=== PATIENT | female | born 1945 | race Caucasian/White ===

== ENCOUNTER 2016-07-02 12:54 | Emergency (ER) | payer MEDICARE, OTHER ==
[~2016-07-02] VITALS: Ht 167.6 cm; Wt 120.2 kg
[~2016-07-02 12:54] MED LIST: ASPI-482 PO; DILT120C97 PO; FURO20TA3 PO; LISI-334 PO; LORA1TAB PO; NAPR375T3 PO; POTA10TA5 PO; SERT50TA PO
[2016-07-02 14:18] VITALS: BP 144/75
--- NOTE | 2016-07-02 14:31 | PHYS DOC ---
Past Medical History Past Medical History: High Cholesterol, Hypertension Additional Past Surgical Histo: knee, ankle Adult General Chief Complaint Chief Complaint: LACERATION/AVULSION [facility] HPI Patient is a 70 year old presents emergency department stating that she was at home sitting in a recliner with her feet up when the people that were re- modeling her bathroom asked her to come in and check the progress. Patient states she got up out of her recliner when and they're barefooted and a knife that was laying on the floor caught her left foot. She states that she has a laceration to the inner sole of her left foot with bleeding noted at home. She currently has a Band-Aid over the site with decreased bleeding noted. Patient states her last tetanus shot was in January. She normally takes tramadol and naproxen at home she states that at this current time she is not having any pain or discomfort. Patient denies tingling in her foot. Peripheral pulses 2+ cap refill brisk less than 2 seconds. Review of Systems Review of Systems Constitutional: Denies fever or chills [] Respiratory: Denies cough or shortness of breath [] Cardiovascular: No additional information not addressed in HPI [] Musculoskeletal: Denies back pain or joint pain [] Integument: Denies rash or skin lesions. laceration to the inner left foot Neurologic: Denies headache, focal weakness or sensory changes [] Allergies Allergies Allergies Coded Allergies Type Severity Reaction Last Updated Verified Sulfa (Sulfonamide Antibiotics) Allergy Intermediate Swelling 08/17/14 Yes Physical Exam Physical Exam Constitutional: Well developed, well nourished, no acute distress, non-toxic appearance. [] HENT: Normocephalic, atraumatic, bilateral external ears normal, oropharynx moist, no oral exudates, nose normal. [] Eyes: PERRLA, EOMI, conjunctiva normal, no discharge. [] Neck: Normal range of motion, no tenderness, supple, no stridor. [] Cardiovascular:Heart rate regular rhythm Lungs & Thorax: No respiratory distress noted Skin: Warm, dry, no erythema, no rash. Patient with 0.5 cm superficial cut to the inner part of her left foot. Bleeding is currently controlled. Peripheral pulses 2+ cap refill brisk less than 2 seconds. Back: No tenderness Extremities: No tenderness, no cyanosis, no clubbing, ROM intact, no edema. [] Neurologic: Alert and oriented X 3, normal motor function, normal sensory function, no focal deficits noted. [] Psychologic: Affect normal, judgement normal, mood normal. [] EKG EKG [] Radiology/Procedures Radiology/Procedures [] Course & Med Decision Making Course & Med Decision Making Pertinent Labs and Imaging studies reviewed. (See chart for details) Site was cleaned with Hibiclens. Steri-Strip was placed over the site with a bandage. Patient was instructed to keep the area clean and dry. Watch for signs and symptoms of infection: Redness, warmth, tenderness or any yellow/green drainage of a come from the site if this should occur she is to follow back up with her primary care physician immediately. Patient agrees with discharge instructions treatment regimens and follow-up recommendations. Patient not he takes naproxen and tramadol at home for pain control. No further pain medication as needed at this time. We'll recommend ice packs to the area on 20 minutes off 20 minutes several times a day. Elevation as much as possible. [] Dragon Disclaimer Dragon Disclaimer This electronic medical record was generated, in whole or in part, using a voice recognition dictation system. Departure Departure Impression: Primary Impression: Laceration of left foot Disposition: HOME, SELF-CARE Condition: STABLE Referrals: SIA MEMBRENO MD (PCP) Patient Instructions: Laceration Care, Adult, [id number], Sterile Tape Wound Closure Additional Instructions: Activity as tolerated. Ice packs on 20 minutes off 20 minutes several times a day. Elevation as much as possible. Keep the area clean and dry. Watch for signs and symptoms of infection: Redness, warmth, tenderness or any yellow/greenish drainage of a come from the site physician occur follow-up through primary care physician immediately. Steri-Strips should fall off in approximately 7-10 days. Return back to emergency prior signs symptoms of become worse. Follow-up to primary care physician as needed. MURIEL PEREZ NP Jul 02, 2016 14:30
== END 2016-07-02 14:41 | disposition home or self-care (01) ==
LOC: ER 12:54
DX: S91.312A Laceration without foreign body, left foot, initial encounter (principal); E78.00 Pure hypercholesterolemia, unspecified; I10 Essential (primary) hypertension; Z88.2 Allergy status to sulfonamides; W26.0XXA Contact with knife, initial encounter; Y93.89 Activity, other specified; Y99.8 Other external cause status; Y92.89 Other specified places as the place of occurrence of the external cause
CPT/HCPCS: 12001; 99282; 99283-25

== ENCOUNTER → 2017-07-15 | Outpatient (CLI) | payer MEDICARE, OTHER | END | disposition home or self-care (01) | LOC: KCIC MAMMO 15:29 | DX: Z12.31 Encounter for screening mammogram for malignant neoplasm of breast (principal); Z80.3 Family history of malignant neoplasm of breast | CPT/HCPCS: 77063; 77067 ==

== ENCOUNTER → 2017-09-17 | Outpatient (CLI) | payer MEDICARE, OTHER | END | disposition home or self-care (01) | LOC: KCIC 15:04 | DX: M43.16 Spondylolisthesis, lumbar region (principal); M47.896 Other spondylosis, lumbar region | CPT/HCPCS: 72100 ==

== ENCOUNTER → 2017-09-24 | Outpatient (CLI) | payer MEDICARE, OTHER | END | disposition home or self-care (01) | LOC: KCIC MRI 14:23 | DX: M51.27 Other intervertebral disc displacement, lumbosacral region (principal); M48.061 Spinal stenosis, lumbar region without neurogenic claudication | CPT/HCPCS: 72148 ==

== ENCOUNTER → 2018-04-11 | Outpatient (CLI) | payer MEDICARE, OTHER ==
[~2018-04-11] MED LIST changes: +DILT120C80 PO; -DILT120C97 PO; +NAPR-695 PO; -NAPR375T3 PO; +POTA10TA12 PO; -POTA10TA5 PO
--- NOTE | 2018-04-11 13:30 | KCIC ---
EXAM: Right lower extremity venous Doppler sonogram. HISTORY: Pain and slight. TECHNIQUE: Bolanos scale and color Doppler sonographic evaluation of the right lower extremity veins with spectral waveform analysis was performed. FINDINGS: There is normal color flow, normal compressibility and there are normal spectral waveforms in the common femoral, superficial femoral, popliteal, posterior tibial and greater saphenous veins. There is a prominent right inguinal lymph node measuring 2.6 cm in long axis. This maintains a fatty hilum and is likely histologic reactive. IMPRESSION: No Doppler evidence of lower extremity deep venous thrombosis. Electronically signed by: Colleen Ascencio MD (04/11/2018 1:26 PM) [facility]
== END | disposition home or self-care (01) ==
LOC: KCIC US 12:30
PROVIDERS: ATTEND Nurse Practitioner Family
DX: M79.661 Pain in right lower leg (principal); M79.89 Other specified soft tissue disorders; L53.9 Erythematous condition, unspecified
CPT/HCPCS: 93971

== ENCOUNTER → 2018-12-24 | Outpatient (CLI) | payer MEDICARE ==
[~2018-12-24] MED LIST changes: -DILT120C80 PO; +DILT120C85 PO
--- NOTE | 2018-12-24 14:35 | KCIC ---
BILATERAL SCREENING MAMMOGRAM, 3-D History: Routine screening. Comparison: Bilateral mammogram 07/15/2017 and 2014. Technique: MLO and CC digital tomosynthesis (3D) images obtained. Radiologist reviewed these images on dedicated workstation. Findings: Breast Tissue Density A : The breasts are almost entirely fatty. There are no dominant masses, suspicious microcalcifications, or architectural distortion. IMPRESSION: No mammographic evidence of malignancy. Recommend routine screening. BI-RADS category 1: Negative. The images were reviewed with computer-aided detection. Patient information is entered into reminder system with a target due date for the next screening mammogram. Mammography is the most sensitive method for finding small breast cancers, but it does not detect them all and is not a substitute for careful clinical examination. A negative mammogram does not negate a clinically suspicious finding and should not result in delay in biopsying a clinically suspicious abnormality. "Our facility is accredited by the [employer] Mammography Program." Electronically signed by: Abram Taylor MD (12/24/2018 2:33 PM) [id number]
--- NOTE | 2018-12-24 16:02 | KCIC ---
Indication: Postmenopausal screening for osteoporosis. Follow-up study. COMPARISON: November 15, 2014. Bone Density: -BMD: (g/cm2) - AP Spine Total (L1-L4).......... 0.921. - Total left Hip................. 0.825. T-Score: - AP Spine Total (L1-L4)......... -1.1. - Total left Hip................. -1.0. Z-Score: - AP Spine Total (L1-L4).......... 1.0. - Total left Hip................. 0.6. World Health Organization criteria for BMD interpretation classify patients as Normal (T-score at or above -1.0), Osteopenic (T-score between -1.0 and -2.5), or Osteoporotic (T-score at or below -2.5). Impression: 1. AP Spine Total L1-L4--- osteopenia. Since the previous study, there has been a decrease in the BMD of approximately 9%. 2. Total left Hip--- borderline normal. Since the previous study, there has been a decrease in the BMD of 13%. Electronically signed by: Gary Armendariz MD (12/24/2018 3:59 PM) [facility]
== END | disposition home or self-care (01) ==
LOC: KCIC DEXA 10:47
PROVIDERS: ATTEND Nurse Practitioner Family
DX: Z12.31 Encounter for screening mammogram for malignant neoplasm of breast (principal); M85.88 Other specified disorders of bone density and structure, other site; Z78.0 Asymptomatic menopausal state
CPT/HCPCS: 77063; 77067; 77080

== ENCOUNTER → 2019-02-11 | Outpatient (CLI) | payer MEDICARE ==
[~2019-02-11] MED LIST changes: +ATOR40TA59 PO; -DILT120C85 PO; +DILT120C99 PO; +MULT1TAB52 PO; +OMEG1CAP27 PO; +POTA20TA82 PO; +RANI150T2 PO; +TRAM50TA PO; +VITA100T5 PO
--- NOTE | 2019-02-11 09:15 | KCIC ---
EXAM: Bilateral hips, 2 views. HISTORY: Arthritis. COMPARISON: None. FINDINGS: Frontal and frog-leg views of both hips are obtained. There is mild left femoral head marginal spurring and degenerative subchondral sclerosis and subchondral cyst formation. There is no fracture, dislocation or subluxation. IMPRESSION: Mild left hip osteoarthritis. No acute osseous finding. Electronically signed by: Colleen Ascencio MD (02/11/2019 9:12 AM) [facility]
--- NOTE | 2019-02-11 09:15 | KCIC ---
EXAM: Bilateral hips, 2 views. HISTORY: Arthritis. COMPARISON: None. FINDINGS: Frontal and frog-leg views of both hips are obtained. There is mild left femoral head marginal spurring and degenerative subchondral sclerosis and subchondral cyst formation. There is no fracture, dislocation or subluxation. IMPRESSION: Mild left hip osteoarthritis. No acute osseous finding. Electronically signed by: Colleen Ascencio MD (02/11/2019 9:12 AM) [facility]
--- NOTE | 2019-02-11 09:16 | KCIC ---
EXAM: Lumbar spine, 5 views. HISTORY: Arthritis. COMPARISON: 09/24/2017 and 09/17/2017. FINDINGS: 5 views lumbar spine are obtained. There is S-shaped thoracolumbar scoliosis with levocurvature centered at the thoracolumbar junction and dextrocurvature centered at L4. There is grade 1 anterolisthesis of L5 on S1. There is minimal retrolisthesis of L2 on L3 and L3 on L4, a component of which is projectional. There is severe degenerative endplate remodeling at multiple levels. There is facet arthropathy predominantly at the lumbosacral junction. There is suspected bone demineralization. There is mild left hip osteoarthritis. IMPRESSION: 1. Multilevel degenerative change throughout the lumbar spine, described in detail above. 2. Mild S-shaped thoracolumbar scoliosis, grade 1 anterolisthesis of L5 on S1 and minimal retrolisthesis of L2 on L3 and L3 on L4. 3. Suspected bone demineralization. Electronically signed by: Colleen Ascencio MD (02/11/2019 9:13 AM) [facility]
--- NOTE | 2019-02-11 09:20 | KCIC ---
Standing bilateral knee radiographs to include AP and lateral radiographs of the left tibia and fibula 02/11/2019 CLINICAL HISTORY: Bilateral knee pain. Left tibia and fibula pain. Standing AP and lateral digital radiographs of the left and right knee were obtained. AP and lateral digital radiographs of the left tibia and fibula were obtained. There is diffuse osteopenia of the visualized bony structures. No fracture or dislocation of the left tibia or fibula is seen. Mild to moderate degenerative changes are seen involving the left ankle joint. Moderate to severe degenerative changes are seen involving all 3 compartments of both knees. These consist of joint compartment narrowing, subchondral sclerosis and associated osteophyte formation. They particularly involve the medial and patellofemoral compartments. No fracture or dislocation of either knee is seen. There is no radiographic evidence of a joint effusion. IMPRESSION: 1. Moderate to severe degenerative changes are seen involving both knees. No acute osseous abnormality is seen. 2. Mild to moderate degenerative changes are seen involving the left ankle joint. No acute osseous abnormality of the left tibia or fibula is seen. Electronically signed by: Crow Acevedo MD (02/11/2019 9:17 AM) [facility]
== END | disposition home or self-care (01) ==
LOC: KCIC 08:08
PROVIDERS: ATTEND Internal Medicine Rheumatology
DX: M16.12 Unilateral primary osteoarthritis, left hip (principal); M41.85 Other forms of scoliosis, thoracolumbar region; M47.896 Other spondylosis, lumbar region
CPT/HCPCS: 72110; 73502; 73560; 73590

== ENCOUNTER → 2019-02-20 | Outpatient (CLI) | payer MEDICARE ==
[~2019-02-20] MED LIST changes: -ATOR40TA59 PO; -MULT1TAB52 PO; -OMEG1CAP27 PO; -POTA20TA82 PO; -RANI150T2 PO; -TRAM50TA PO; -VITA100T5 PO
--- NOTE | 2019-02-20 11:42 | KCIC ---
EXAMINATION: Magnetic resonance imaging (MRI) of the lumbar spine without contrast 02/20/2019 9:30 AM HISTORY: Pain in the left leg. TECHNIQUE: Multiplanar multi-weighted MRI of the lumbar spine was performed without intravenous contrast using the standard lumbar spine protocol. Contrast information: None administered. COMPARISON: MR lumbar spine 09/24/2017 FINDINGS: There is minimal retrolisthesis of L2 on L3, L3 on L4 and minimal anterolisthesis of L5 on S1, stable. Vertebral body heights are maintained. Marrow signal intensity is normal in all sequences with exception of Modic 2 type endplate degenerative changes at L3-L4. Mild disc height loss is noted at L1-L2, L2-L3 and L3-L4. Annular fissures are noted at L4-L5 and L5-S1. Conus medullaris remains at L2. Distal spinal cord signal intensity is normal in all sequences. Abdominal aorta is tortuous, normal in caliber as visualized. Visualized portions of the retroperitoneum appear intact. Visualized portions of the sacrum are intact. There is suggestion of hepatomegaly extends inferiorly to the level of L4-L5. L1-L2: There is central disc extrusion. There is moderate disc bulge. Mild facet arthropathy. Mild to moderate bilateral neuroforaminal stenosis. Mild spinal canal stenosis without significant deformity of the conus. No cord signal alteration. Findings are stable. L2-L3: There is a moderate circumferential disc bulge. There may be a left foraminal disc protrusion, stable. Mild right and moderate left facet arthropathy. Mild right and moderate left neuroforaminal stenosis. Mild spinal canal stenosis. L3-L4: There is a moderate circumferential disc bulge. There is moderate facet arthropathy. Moderate right and moderate to severe left neuroforaminal stenosis. Mild spinal canal stenosis. L4-L5: There is a moderate disc bulge with central disc protrusion. There is moderate to severe facet arthropathy ligamentum flavum infolding. Moderate right and severe left neuroforaminal stenosis. Mild to moderate spinal canal stenosis. Findings are stable since prior examination. L5-S1: There is a moderate disc bulge with central disc protrusion. There is severe facet arthropathy with ligamentum flavum infolding. Moderate to severe bilateral neuroforaminal stenosis, right greater than left. No significant spinal canal stenosis. Findings are not significantly changed. IMPRESSION: Moderate degenerative changes of the lumbar spine as described in detail above. Findings are not significantly changed since prior examination from 09/24/2017. Electronically signed by: Jeanine Townsend MD (02/20/2019 11:39 AM) [facility]
== END | disposition home or self-care (01) ==
LOC: KCIC MRI 09:24
PROVIDERS: ATTEND Internal Medicine Rheumatology
DX: M51.27 Other intervertebral disc displacement, lumbosacral region (principal); M48.07 Spinal stenosis, lumbosacral region; M12.88 Other specific arthropathies, not elsewhere classified, other specified site; M47.816 Spondylosis without myelopathy or radiculopathy, lumbar region
CPT/HCPCS: 72148

== ENCOUNTER → 2019-03-10 | Outpatient (CLI) | payer MEDICARE ==
[~2019-03-10] MED LIST changes: +ATOR40TA59 PO; +IOHEXOL 180 MG/ML 10 ML VIAL. ONE; +MULT1TAB52 PO; +OMEG1CAP27 PO; +POTA20TA82 PO; +RANI150T2 PO; +TRAM50TA PO; +VITA100T5 PO; +methylPREDNISolone ACETATE 40 MG/ML VIAL. ONE; +methylPREDNISolone ACETATE 80 MG/ML VIAL. ONE
--- NOTE | 2019-03-10 22:26 | PAIN ---
DATE OF SERVICE: 03/10/2019 PROGRESS NOTE FOR PAIN CLINIC CHIEF COMPLAINT: Low back and left lower extremity pain. HISTORY OF PRESENT ILLNESS: This is a 73-year-old female who presents with history of pain in the low back and left lower extremity since about September of this year and present for many years, but much worse since September. The patient reports no recent injury or action; however, the pain has been returning and increasing with activity in the low back, left lower extremity, posterior gluteus, posterior thigh and posterior calf. The patient reports it is worse with walking, standing, change in positions. It wakes her from sleep at least once or twice a night. It does not affect her bowel or bladder control, but does affect her ability to walk with significant fatigability in the left lower extremity. The patient reports she is having chiropractic treatment, which helped initially, but lately has not been doing much to decrease the pain. The patient describes the pain as constant, tingling with numbness in the left leg, aching and dull, sharp at times in the back as well on the left side. The patient rates her disability rating from 0-10, 10 being the worst, as 6 with family and home responsibilities, 2 with recreation, 9 with occupation, 5 with social activity, 2 with self-care and 1 with life support activities. The patient did have an MRI scan of the lumbar spine showing moderate degenerative changes, L3-L4 circumferential disk bulge, L2-L3 circumferential disk bulge, left foraminal disk protrusion, moderate to severe left neural foraminal stenosis at L3-L4. L4-L5 shows moderate disk bulge with central disk protrusion. Mild to moderate ligamentum flavum thickening with moderate right and severe left neural foraminal stenosis. L5-S1 shows moderate disk bulge with central disk protrusion, severe arthropathy, and moderate to severe bilateral neural foraminal stenosis, right greater than left. The patient reports no loss of motor function, but again significant fatigability, worse with walking, standing, change in positions, better with sitting or lying down, but again is awakening her from sleep fairly often. PAST MEDICAL HISTORY: Significant for: 1. Hypertension. 2. Arthritis. 3. Obesity. PAST SURGICAL SURGERY: Previous surgeries include: 1. Tubal ligation. 2. Right carpal tunnel repair. 3. Left knee meniscal repair. 4. Left foot nerve release. 5. Knee scope on the left. 6. Cataract extraction. CURRENT MEDICATIONS: Include: 1. Naproxen. 2. Lisinopril. 3. Diltiazem. 4. Atorvastatin. 5. Lasix. 6. Potassium. 7. Zantac. 8. Tramadol. 9. Fish oil. 10. Vitamin E. 11. Daily vitamins. 12. Low dose aspirin. 13. Sertraline. ALLERGIES: The patient is allergic to SULFA. FAMILY HISTORY: Significant for arthritis on mother and father's side. SOCIAL HISTORY: The patient does not smoke, drinks alcohol occasionally, but very rarely. Does not use any illegal, illicit or recreational drugs. She is , lives with her spouse locally in [place], [place]. REVIEW OF SYSTEMS: The patient's review of systems is positive for those items mentioned in the history of present illness. All systems reviewed and otherwise negative. It is complete, full and well documented on the patient's chart. PHYSICAL EXAMINATION: VITAL SIGNS: The patient's blood pressure is 128/62, pulse is 63, respirations 18, temperature is 98.3 degrees Fahrenheit, height is 5 feet 6 inches, weight is 273 pounds. GENERAL: The patient is awake, alert, oriented, appropriate, very pleasant demeanor. HEENT: Shows head normocephalic, atraumatic. Extraocular movements are intact and symmetrical. Oral cavity: Mucous membranes moist and pink. Dentition is intact. NECK: Shows anterior throat supple without palpable lymphadenopathy noted. Swallow reflex symmetrical. CHEST: Shows normal on inspection. Breath sounds are clear to auscultation bilaterally. HEART: Shows S1, S2 clear. No murmurs auscultated. ABDOMEN: Obese, but soft, nontender, nondistended. No palpable organomegaly is noted. No rebound or guarding demonstrated. BACK: Shows spine grossly in the midline. Normal appearing thoracic kyphosis. There is minor flattening of lumbar lordotic curvature. Lumbar paraspinous muscle shows symmetrical on inspection. With palpation, there is some moderate tenderness diffusely bilaterally going diffusely without significant radiation. The patient's back shows good rotational motion of the lumbar spine, both laterally greater than 10 degrees right and left as well as extension greater than 10 degrees, forward flexion 45 degrees without significant pain reported. No tenderness over the spinous processes, sacrum or sacroiliac regions. EXTREMITIES: The patient's lower extremities show deep tendon reflexes at 1+ in the patellar and tendo calcaneus tendons are equal. Motor exam is approximately 4 on a scale of 5 with left dorsiflexion, extension, 5/5 on the right, quadriceps and hamstring flexion 5/5 bilaterally. Peripheral pulses are 1+ posterior tibia. No peripheral edema is noted. Straight leg raise is noted to be positive on the left about 40 degrees and decreased with knee flexion. On right side, it is negative. Gaenslen's and Dennis's maneuvers are negative bilaterally. The patient is able to stand on her toes without significant difficulty or loss of balance, walks with a normal appearing gait, does not appear to favor the right or left lower extremity significantly, not using any assistive devices to ambulate. SKIN: Shows warm and dry. Good turgor. No edema. No sores, rashes or bruising throughout. IMPRESSION: 1. This is a 73-year-old female with long history of low back pain, left lower extremity pain, worse for the past 5 months or so in a radicular fashion. 2. MRI scan of the lumbar spine as noted. 3. Obesity. 4. Arthritis. PLAN: Options were discussed with the patient including conservative medical management, physical therapy, interventional techniques. She would like to proceed with interventional techniques. We discussed a lumbar epidural steroid injection using description as well as anatomical models to describe the procedure. Risks were then discussed including, but not limited to bleeding, infection, possibility of epidural hematoma, subsequent neurological compromise, dural puncture, headaches, spinal cord and/or nerve damage, side effects of steroid medication and poor results regarding pain control. The patient understands and wishes to proceed. The patient will return to the clinic in approximately 2 weeks for followup. She was counseled on return appointment, activity level and side effects to be aware of. DIAGNOSIS: Lumbar radiculopathy with lumbar degenerative disk disease and lumbar spinal stenosis. PROCEDURE: Lumbar epidural steroid injection, translaminar approach, at L5-S1 level using C-arm fluoroscopic guidance under sterile prep and drape using local anesthetic. MEDICATION INJECTED: A total of 120 mg Depo-Medrol plus 10 mL of preservative-free normal saline and 2 mL of contrast. CONDITION AT DISCHARGE: Stable. The patient tolerated procedure well and had no complications. DEBORAH COLEMAN MD DR: ALICIA/soila JOB#: [id number] / [id number] MOHAN Cho MD
== END ==
LOC: PNCL 13:50
PROVIDERS: ATTEND Anesthesiology
DX: M51.16 Intervertebral disc disorders with radiculopathy, lumbar region (principal); M48.061 Spinal stenosis, lumbar region without neurogenic claudication; I10 Essential (primary) hypertension; E66.9 Obesity, unspecified; Z98.51 Tubal ligation status; Z87.39 Personal history of other diseases of the musculoskeletal system and connective tissue; Z98.49 Cataract extraction status, unspecified eye; Z88.1 Allergy status to other antibiotic agents; Z72.89 Other problems related to lifestyle; Z96.1 Presence of intraocular lens
CPT/HCPCS: 62323; J1030; J1040; Q9965

== ENCOUNTER → 2019-03-30 | Outpatient (CLI) | payer MEDICARE ==
[~2019-03-30] MED LIST changes: -IOHEXOL 180 MG/ML 10 ML VIAL. ONE; +POTA20TA4 PO; -POTA20TA82 PO; -methylPREDNISolone ACETATE 40 MG/ML VIAL. ONE; -methylPREDNISolone ACETATE 80 MG/ML VIAL. ONE
--- NOTE | 2019-03-30 15:16 | PAIN ---
DATE OF SERVICE: 03/30/2019 PROGRESS NOTE FOR PAIN CLINIC DIAGNOSES: Lumbar radiculopathy with lumbar degenerative disk disease and lumbar spinal stenosis. HISTORY OF PRESENT ILLNESS: The patient is a 73-year-old female who returns for followup status post lumbar epidural steroid injection x 1. The patient reports no significant improvement. In fact, she was feeling worse, was actually physically sick that day with some emesis, reports that passed fairly quickly after a few hours, but the pain in the back never got better or into the right lower extremity and she had significant radiation to posterior gluteus, posterior thigh, posterior calf and that has actually become worst. The patient reports no new motor or sensory deficits, no new bowel or bladder incontinence or other complaints, but still significant pain with walking, standing, changing positions, better with sitting or lying down, but still limiting her daily activities fairly significantly and feels that the pain is actually worsening over time. The patient reports no new motor or sensory deficits, no new bowel or bladder incontinence. She has tried physical therapy. She has tried doing elliptical exercises. She is unable to do that for about 5 minutes at a time, but she continued to exercise despite the pain. The patient rates pain is a 9 on a scale of 10 at its worst over the past week, 8 on average, 5 at its least and is a 5 today. The patient reports it is tingling, sharp, radiating, constant in the low back and in the right lower extremity. The patient reports no new motor or sensory deficits, no bowel or bladder incontinence, but does awaken her from sleep about every 6 hours. PHYSICAL EXAMINATION: VITAL SIGNS: The patient's blood pressure 147/70, pulse 70, respirations 18, temperature 98.0 degrees Fahrenheit, height is 5 feet 6 inches, weight is 210 pounds. GENERAL: The patient is awake, alert, oriented, appropriate, very pleasant demeanor. HEENT: Shows normocephalic, atraumatic. Extraocular movements are intact and symmetrical. Oral cavity: Mucous membranes moist and pink. Dentition is intact. NECK: Shows anterior throat supple without palpable lymphadenopathy noted. Swallow reflex symmetrical. CHEST: Shows normal on inspection. Breath sounds are clear bilaterally. HEART: Shows S1, S2 clear. No murmurs auscultated. ABDOMEN: Soft, nontender, nondistended. No palpable organomegaly is noted. BACK: Shows spine grossly in the midline. Normal appearing thoracic kyphosis, some minor flattening of lumbar lordotic curvature. Lumbar paraspinous muscle shows symmetrical on inspection, on palpation shows some moderate tenderness diffusely bilaterally, but only diffusely without significant radiation. The patient shows good range of motion with both laterally as well as extension and flexion of lumbar spine without significant pain reported. EXTREMITIES: Lower extremities show deep tendon reflexes at 1+ in the patellar and tendo calcaneus tendons. Motor exam is approximately on a scale of 5/5 on the left and 4/5 on the right with dorsiflexion and extension. Peripheral pulses are 1+. No peripheral edema is noted bilaterally. PLAN: Options were discussed with the patient. The patient's old chart was reviewed as her current medication regimen updated. Current review of systems updated today as well and we will hold on any further injections per the patient's choice. We did discuss that this may take more than one epidural steroid injection to see any improvement, but she would like to discuss this with her neurosurgeon. We will make those arrangements and see if there is a good neurosurgical alternative. If not, the patient will return and we will proceed with a second lumbar epidural steroid injection at that time. DEBORAH COLEMAN MD DR: ALICIA/soila JOB#: [id number] / [id number]
== END ==
LOC: PNCL 13:11
PROVIDERS: ATTEND Anesthesiology
DX: M51.16 Intervertebral disc disorders with radiculopathy, lumbar region (principal); M48.061 Spinal stenosis, lumbar region without neurogenic claudication
CPT/HCPCS: 62323; 99212; G0463

== ENCOUNTER → 2019-07-22 | Outpatient (CLI) | payer MEDICARE ==
[~2019-07-22] MED LIST changes: +DOCU-109 PO; +HYDR-3164 PO
[2019-07-22 13:53] LABS: BASO # 0.1 x10^3/uL (0.0-0.2); BASO % 1 % (0-3); EOS # 0.1 x10^3/uL (0.0-0.7); EOS % 1 % (0-3); HEMATOCRIT 39.6 % (36.0-47.0); HEMOGLOBIN 14.2 g/dL (12.0-15.5); LYMPH # 2.1 x10^3/uL (1.0-4.8); LYMPH % 32 % (24-48); MEAN CORPUSCULAR HEMOGLOBIN 33 pg (25-35); MEAN CORPUSCULAR HGB CONC 36 g/dL (31-37); MEAN CORPUSCULAR VOLUME 91 fL (79-100); MONO # 0.7 x10^3/uL (0.0-1.1); MONO % 10 % (0-9); NEUT # 3.7 x10^3/uL (1.8-7.7); NEUT % 56 % (31-73); PLATELET COUNT 238 x10^3/uL (140-400); RED BLOOD COUNT 4.33 x10^6/uL (3.50-5.40); RED CELL DISTRIBUTION WIDTH 13.2 % (11.5-14.5); WHITE BLOOD COUNT 6.6 x10^3/uL (4.0-11.0)
[2019-07-22 14:03] LABS: CALCIUM 10.6 mg/dL (8.5-10.1); GFR 54.7; POTASSIUM 4.8 mmol/L (3.5-5.1)
== END | disposition home or self-care (01) ==
LOC: SURGPAT 12:51
PROVIDERS: ATTEND Neurological Surgery
DX: Z01.818 Encounter for other preprocedural examination (principal); M48.061 Spinal stenosis, lumbar region without neurogenic claudication; M51.16 Intervertebral disc disorders with radiculopathy, lumbar region; Z88.2 Allergy status to sulfonamides
CPT/HCPCS: 36415; 80048; 85025; 87641

== ENCOUNTER → 2019-07-27 | Day surgery (SDC) | payer MEDICARE ==
--- NOTE | 2019-07-24 14:35 | HP ---
ADMIT DATE: 07/27/2019 HISTORY OF PRESENT ILLNESS: The patient is a pleasant 73-year-old who has difficulty with low back pain and left anterior thigh, knee, and leg pain. The problem started about 2 years ago. It began spontaneously. She rates her pain as a 2/10 most of the time. When she stands and walks, her pain can be an 8/10. Ice helps her. Naproxen and tramadol help. She has had epidural steroid injections which did help her for a period of time, but most recently when she had injections, she did have a reaction and she can no longer have those. She has tried physical therapy in the past that has not helped her. PAST MEDICAL HISTORY: Arthritis, cold sores and fever blisters, headache or migraine, head or neck injury, heart murmur, hypertension, and swelling of limbs. PAST SURGICAL HISTORY: Tubal ligation in 1994, foot surgery in 1999, knee surgery in 2001, and carpal tunnel release in 2002. FAMILY HISTORY: Cancer, heart disease, hypertension, migraine, and spine problems. SOCIAL HISTORY: . Rarely exercises. Denies substance abuse. Denies tobacco use. Drinks alcohol 1-2 times per year. Drinks coffee daily. ALLERGIES: SULFA. CURRENT MEDICATIONS: Atorvastatin, tramadol, naproxen, lisinopril, DILT extended release, furosemide, potassium, ranitidine, sertraline, low-dose aspirin, daily vitamins, fish oil, and vitamin E. REVIEW OF SYSTEMS: A 12-point review of systems was obtained and is noncontributory except for that mentioned above. PHYSICAL EXAMINATION: NEUROSURGERY EXAMINATION: GENERAL APPEARANCE: Alert, pleasant, and no acute distress. HEAD: Normocephalic and atraumatic. SKIN: Warm and dry. MUSCULOSKELETAL: Lumbar paraspinal muscle bulk is normal, restricted range of motion of the lumbar spine, jtet-lm-vgxxazre tenderness of the lower lumbar spine with palpation, and normal range of motion of the lower extremities bilaterally. EXTREMITIES: No clubbing, cyanosis, or edema. NEUROLOGIC: Alert and oriented x 3. Normal recent and remote memory. Strength 5/5 in bilateral lower extremities. Sensory was intact to light touch in lower extremities bilaterally. Reflexes are present and symmetric in bilateral lower extremities. Negative straight leg raising bilaterally. Normal gait. IMAGING: I reviewed a lumbar MRI scan. On that study, there is severe left foraminal narrowing at L3-L4 and at L4-L5. These findings have appeared since her previous evaluation in 2018. ASSESSMENT/ PLAN: I believe the problems at L3-L4 and L4-L5 may be responsible for some of her pain. My recommendation at this point is to move forward with the microdecompression at those levels. I did discuss this with her including the rationale, technique, and risks as well as expected postoperative course. She understands. She would like to go ahead. We will make the arrangements. FUENTES HARRY MD DR: NEFTALI/soila JOB#: [id number] / [id number] JANET
[~2019-07-27] VITALS: Ht 167.6 cm; Wt 124.3 kg
[~2019-07-27] MED LIST changes: +BACITRACIN 50,000 UNIT in IV NORMAL SALINE 1000ML BAG 1,000 ML IRR ONE; +BUPIVACAINE-EPI 0.5%-1:200000 MPF 30 ML VIAL. ONE; +DESFLURANE > 120 MINUTES IH ONE; +DEXAMETHASONE SOD PHOS 20 MG/5 ML VIAL. ONE; +DEXAMETHASONE SOD PHOS 4 MG/ML VIAL ONE; +GELATIN SPONGE SIZE 100. ONE; +GLYCOPYRROLATE 1 MG/5 ML VIAL. ONE; +HYDROcodone/APAP 7.5/325MG 1 TAB TABLET PO PRN; +HYDROmorphone 2 MG/ML VIAL IV PRN; +IV RINGERS,LACTATED 1000ML 1,000 ML IV SCH; +KETOROLAC 60 MG/2 ML VIAL. ONE; +LIDOCAINE 1% PF 2 ML VIAL. ID PRN; +LIDOCAINE 2% PF 5 ML VIAL. ONE; +MORPHINE SULFATE 2 MG/ML VIAL. IV PRN; +NEOSTIGMINE METHYLSULFATE 5 MG/5 ML SYRINGE. ONE; +ONDANSETRON PF 4 MG/2 ML VIAL. IV PRN; +ONDANSETRON PF 4 MG/2 ML VIAL. ONE; +PHENYLEPHRINE 10 MG/ML VIAL. ONE; +PROCHLORPERAZINE 10 MG/2 ML VIAL. IV PRN; +PROPOFOL 20 ML IV ONE; +PROPOFOL 50 ML IV ONE; +REMIFENTANIL 1 MG VIAL. IV ONE; +REMIFENTANIL 2 MG VIAL. IV ONE; +ROCURONIUM 50 MG/5 ML VIAL. ONE; +THROMBIN TOPICAL 20,000 UNIT SPRAY.SYRN KIT TP ONE; +ceFAZolin SODIUM 3 GM in IV DEXTROSE 5% 100ML 100 ML IV PRN; +ePHEDrine PF IN SALINE 50 MG/10 ML SYRINGE. IV ONE; +fentaNYL PF VIAL 100 MCG/2 ML VIAL IV PRN
--- NOTE | 2019-07-27 13:57 | DISCH ---
DISCHARGE INSTRUCTIONS Condition on Discharge Condition on Discharge: Stable Activity After Discharge Activity Instructions for Disc: Activity as tolerated, Avoid exertion Other activity instructions: no driving for a week Bathing Instructions: Shower-keep dressing dry Lifting Instructions after Dis: No heavy lifting, No pulling or pushing, Do not lift >10 pounds Exercise Instruction after Dis: Walk 10 min, 3 x per day Diet after Discharge Additional Diet Restrictions: resume home diet Wound Incision Care Wound/Incision Care: Ice to area for comfort Other wound/incision instructi: may remove dressing in 48 hours if dry then may shower, no soaking Contacting the DRManuel after DC Call your doctor for: Concerns you may have Follow-Up Follow up with: Dr. Harry's nurse in 2 weeks [phone] FUENTES HARRY MD Jul 27, 2019 13:57
[2019-07-27 14:20] VITALS: BP 156/77
--- NOTE | 2019-07-29 15:07 | PATHOLOGY ---
[facility] Accession Number: [id number] . 01 Material submitted: . vertebral column - LUMBAR DECOMPRESSION . 01 Clinical history: . Lumbar stenosis, herniated disc with radiculopathy . 02 Diagnosis: Segments of fibrocartilaginous, adipose, and skeletal muscle tissue and bone, lumbar decompression: - Degenerative changes of fibrocartilaginous tissue. . ([facility]:mm; 07/29/2019) [facility] 07/29/2019 1437 Local . 02 Comment: There is no evidence of an acute inflammatory process or malignancy. . ([facility]:mml; 07/29/2019) . 02 Electronically signed: . Garrison Manning MD, Pathologist NPI- [id number] . 01 Gross description: . The specimen is received in formalin, labeled "Mee Finn, lumbar decompression". Received are multiple segments of pink-caceres, gritty tissue admixed with fragments of bone measuring 4.8 x 3.9 x 0.9 cm in aggregate dimensions. The specimen is submitted representatively in cassette A1, following decalcification. ([facility]; 07/28/2019) [facility]/QA 07/28/2019 1621 Local . 02 Pathologist provided ICD-10: M99.73, M51.26, M54.16 . 02 CPT . 057113, 226374 Specimen Comment: A courtesy copy of this report has been sent to [phone], [phone] Specimen Comment: [phone] Specimen Comment: Report sent to ,DR STEPHEN / DR MELO Performed at: [address], [place], [place] [id number] MD Zachary Shaikh MD Phone: [phone] Performed at: [address] [id number] MD Garrison Manning MD Phone: [phone]
--- NOTE | 2019-08-02 14:13 | OP ---
DATE OF SURGERY: 07/27/2019 PREOPERATIVE DIAGNOSES: Lateral recess and foraminal stenosis L3-L4, L4-L5 with left lumbar radiculopathy. POSTOPERATIVE DIAGNOSES: Lateral recess and foraminal stenosis L3-L4, L4-L5 with left lumbar radiculopathy. OPERATION PERFORMED: Hemilaminotomy and medial foraminal decompression L3-L4, L4-L5, left. The operation was done with multimodality monitoring including EMG and SSEP, fluoroscopy was also used as well as microscopy and microscopic technique. SURGEON: Sloan Harry M.D. [employer] HELPER: JOEL Longo assisted with the surgery. She assisted with the exposure, the 2-level microdecompression as well as the closure. OPERATIVE INDICATIONS: The patient is a pleasant 73-year-old who has had problems with back and left leg pain, which failed conservative measures. She had the above-mentioned findings on imaging studies. I offered surgery to her and the hope that it would help her with her pain and she wished to go ahead. She knew the risks and the technique. DESCRIPTION OF PROCEDURE: Following general endotracheal anesthesia, the patient was positioned prone on the Hemant table. Lumbar region prepped and draped in the standard fashion. DENNIS hose and AV impulse boots were applied for DVT prophylaxis. The microscope was draped. Fluoroscopy was draped and brought into the field. Monitoring was established. Ancef 3 g was given less than 1 hour prior to the initiation of surgery. Using fluoroscopic guidance, a midline incision was made directly extending from L3-L5. I dissected down the skin and subcutaneous tissue. I placed a self-retaining retractor. I brought in the microscope. Using the high speed air drill and beginning at L3-L4, I burred down a generous hemilaminotomy. I did using microscopic technique. I peeled away thickened ligamentum flavum and exposed the dura and followed this and performed a foraminotomy. Trimming away ligamentum flavum, I worked superiorly and fully decompressed the entire region and then I drilled the medial aspect of the foramen and followed the L3 root out laterally into the foramen, where it was compressed quite proximally and I decompressed and then probing the foramen, I felt it was quite open. I performed the identical operation at L4-L5, again without difficulty, decompressing both dura in the L5 root as well as the L4 root as it traversed laterally. At this point, I felt I had an excellent decompression. I did use small amounts of bone wax as well as a bipolar cautery during the operation. I irrigated copiously with antibiotic solution. I then closed the wound in layers with absorbable suture. The skin was closed with 4-0 subcuticular stitch. The operation went very well and the patient awakened uneventfully and taken to recovery room in excellent condition. I was quite pleased with the surgery. SLOAN HARRY MD DR: NEFTALI/soila JOB#: [id number] / [id number] JANET
== END ==
LOC: SURG 07:11
PROVIDERS: ATTEND Neurological Surgery
DX: M48.061 Spinal stenosis, lumbar region without neurogenic claudication (principal); M54.16 Radiculopathy, lumbar region; G43.909 Migraine, unspecified, not intractable, without status migrainosus; I10 Essential (primary) hypertension; F15.90 Other stimulant use, unspecified, uncomplicated; Z72.89 Other problems related to lifestyle; Z98.51 Tubal ligation status; Z88.1 Allergy status to other antibiotic agents
CPT/HCPCS: 63047; 63048; 88304; 88311; 97161; A7015; J0171; J1100; J1885; J2001; J2370; J2405; J2704; J2710; J3490; J7030; 76000

== ENCOUNTER → 2019-11-23 | Outpatient (CLI) | payer MEDICARE ==
[2019-07-27 14:20] VITALS: BP 156/77
[~2019-11-23] MED LIST changes: -BACITRACIN 50,000 UNIT in IV NORMAL SALINE 1000ML BAG 1,000 ML IRR ONE; -BUPIVACAINE-EPI 0.5%-1:200000 MPF 30 ML VIAL. ONE; -DESFLURANE > 120 MINUTES IH ONE; -DEXAMETHASONE SOD PHOS 20 MG/5 ML VIAL. ONE; -DEXAMETHASONE SOD PHOS 4 MG/ML VIAL ONE; -GELATIN SPONGE SIZE 100. ONE; -GLYCOPYRROLATE 1 MG/5 ML VIAL. ONE; -HYDROcodone/APAP 7.5/325MG 1 TAB TABLET PO PRN; -HYDROmorphone 2 MG/ML VIAL IV PRN; -IV RINGERS,LACTATED 1000ML 1,000 ML IV SCH; -KETOROLAC 60 MG/2 ML VIAL. ONE; -LIDOCAINE 1% PF 2 ML VIAL. ID PRN; -LIDOCAINE 2% PF 5 ML VIAL. ONE; -MORPHINE SULFATE 2 MG/ML VIAL. IV PRN; +MULT-445 PO; -MULT1TAB52 PO; -NEOSTIGMINE METHYLSULFATE 5 MG/5 ML SYRINGE. ONE; -ONDANSETRON PF 4 MG/2 ML VIAL. IV PRN; -ONDANSETRON PF 4 MG/2 ML VIAL. ONE; -PHENYLEPHRINE 10 MG/ML VIAL. ONE; -PROCHLORPERAZINE 10 MG/2 ML VIAL. IV PRN; -PROPOFOL 20 ML IV ONE; -PROPOFOL 50 ML IV ONE; -REMIFENTANIL 1 MG VIAL. IV ONE; -REMIFENTANIL 2 MG VIAL. IV ONE; -ROCURONIUM 50 MG/5 ML VIAL. ONE; -THROMBIN TOPICAL 20,000 UNIT SPRAY.SYRN KIT TP ONE; -ceFAZolin SODIUM 3 GM in IV DEXTROSE 5% 100ML 100 ML IV PRN; -ePHEDrine PF IN SALINE 50 MG/10 ML SYRINGE. IV ONE; -fentaNYL PF VIAL 100 MCG/2 ML VIAL IV PRN
--- NOTE | 2019-11-23 12:31 | KCIC ---
Bilateral digital screening mammograms and tomosynthesis Reason for examination: Routine screening. Comparison is made to previous study dated December 24, 2018 and priors Routine CC and MLO digital views obtained. Interpretation was made with the benefit of CAD. The skin and nipples show no abnormalities. No abnormal lymph nodes are seen. The breast parenchyma is scattered fibroglandular elements. (Breast density: Category B.) There are no suspicious masses, suspicious calcifications or architectural distortions. A few scattered benign calcifications are again demonstrated. Impression: Negative mammogram. Recommend routine screening. BI-RADS Category 1: Negative. "Our facility is accredited by the [employer] Mammography Program." This patient's information has been entered into a reminder system for the patient to be notified with the results of her examination and a target date for the next mammogram. Electronically signed by: Joe Fernandes MD (11/23/2019 12:29 PM) [id number]
== END | disposition home or self-care (01) ==
LOC: KCIC MAMMO 09:19
PROVIDERS: ATTEND Nurse Practitioner Family
DX: Z12.31 Encounter for screening mammogram for malignant neoplasm of breast (principal); N64.89 Other specified disorders of breast
CPT/HCPCS: 77063; 77067

== ENCOUNTER → 2019-12-31 | Outpatient (CLI) | payer MEDICARE ==
[2019-07-27 14:20] VITALS: BP 156/77
--- NOTE | 2019-12-31 13:36 | KCIC ---
EXAM: Brain MRI without contrast. HISTORY: Paresthesia. TECHNIQUE: Multiplanar, multisequence magnetic resonance imaging of the brain was performed without contrast. COMPARISON: None. FINDINGS: There is no restricted diffusion to suggest acute or subacute infarction. There is no susceptibility effect to suggest hemorrhage. There is no mass effect or midline shift. There is no hydrocephalus. There are scattered areas of signal change throughout the cerebral white matter, most commonly due to chronic small vessel disease in patients of this age. There are prominent dilated perivascular spaces within the left putamen and caudate nucleus, a nonspecific finding. 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 There is a prominent posterior pituitary bright spot. This remains within normal limits and is likely physiologic. There is evidence of lens surgery. There is left maxillary sinus mucosal thickening with small mucous retention cysts. The mastoid air cells are clear. There are normal flow voids within the cerebral vessels. No calvarial lesion is seen. IMPRESSION: 1. No acute intracranial finding. 2. Scattered areas of signal change within the cerebral white matter, most commonly due to chronic small vessel disease in patients of this age. 3. Prominent dilated perivascular spaces within the left basal ganglia. The possibility of a superimposed capillary telangiectasia is not excluded given the imaging appearance. No hemorrhage is seen. Electronically signed by: Colleen Ascencio MD (12/31/2019 1:32 PM) [facility]
--- NOTE | 2019-12-31 14:54 | KCIC ---
EXAM: Carotid Doppler sonogram. HISTORY: Paresthesia. Transit ischemic attack. Hypertension. Atherosclerosis. TECHNIQUE: Bolanos scale and color Doppler sonographic evaluation of the neck with spectral waveform analysis was performed and static images are submitted for review. FINDINGS: There is mild atherosclerotic plaque involving the proximal right external carotid artery and left internal carotid artery. The peak systolic velocity within the right common carotid artery is 132 cm/sec. The peak systolic velocity within the right internal carotid artery is 103 cm/sec and the end diastolic velocity within the right internal carotid artery is 29 cm/sec. The right ICA/CCA ratio is 0.97. The peak systolic velocity within the left common carotid artery is 110 cm/sec. The peak systolic velocity within the left internal carotid artery is 118 cm/sec and the end diastolic velocity within the left internal carotid artery is 29 cm/sec. The left ICA/CCA ratio is 1.07. There is normal antegrade flow within both vertebral arteries. IMPRESSION: No Doppler evidence of hemodynamically significant stenosis. PQRS Compliance Statement - Stenosis calculations for CT, MR and conventional angiography are based upon measurement of the distal ICA diameter in accordance with the NASCET methodology. Stenosis calculations for carotid ultrasound studies are derived from validated velocity criteria which are known to correlate with the NASCET methodology. Electronically signed by: Colleen Ascencio MD (12/31/2019 2:51 PM) [facility]
== END | disposition home or self-care (01) ==
LOC: KCIC MRI 12:28
PROVIDERS: ATTEND Family Medicine
DX: I65.23 Occlusion and stenosis of bilateral carotid arteries (principal); I10 Essential (primary) hypertension; R20.2 Paresthesia of skin; Z86.79 Personal history of other diseases of the circulatory system; Z86.73 Personal history of transient ischemic attack (TIA), and cerebral infarction without residual deficits
CPT/HCPCS: 70551; 93880

== ENCOUNTER → 2020-01-11 | Outpatient (CLI) | payer MEDICARE ==
[2019-07-27 14:20] VITALS: BP 156/77
--- NOTE | 2020-01-12 15:01 | CARD ---
MR#: [id number] Date of Study: 01/12/2020 Ordering Physician: JOAQUIN NOLASCO, Referring Physician: JOAQUIN NOLASCO, Tech: Tere Rocha APPROVED REPORT EXAM: Two-dimensional and M-mode echocardiogram with Doppler and color Doppler. Other Information Quality : AverageHR: 65bpm Technically limited study due to body habitus. INDICATION Chest Pain RISK FACTORS Hypertension Hyperlipidemia 2D DIMENSIONS Left Atrium(2D)4.9 (1.6-4.0cm)IVSd1.2 (0.7-1.1cm) Aortic Root(2D)2.8 (2.0-3.7cm)LVDd4.6 (3.9-5.9cm) LVOT Diameter2.0 (1.8-2.4cm)PWd0.9 (0.7-1.1cm) LVDs2.3 (2.5-4.0cm)FS (%) 50.1 % SV78.8 ml Aortic Valve AoV Peak Kirt.236.9cm/sAoV VTI48.4cm AO Peak GR.22.5mmHgLVOT Peak Kirt.167.8cm/s LVOT VTI 36.22cmAO Mean GR.11mmHg NATHAN (VMAX)1.61rd5CBH (VTI)2.27cm2 Mitral Valve MV E Kwksaact20.0cm/sMV DECEL YSXE507ct MV A Ggavjmnw355.0cm/sMV E Mean Gr.2mmHg MV GUC20jqA/A Ratio0.8 MVA (PHT)2.25cm2 TDI E/Lateral E'8.7E/Medial E'9.5 Pulmonary Valve PV Peak Tcwbsoco482.7cm/sPV Peak Grad.4mmHg Tricuspid Valve TR P. Qfzlwudo439hz/sRAP JVXXRZTZ6hpFb TR Peak Gr.62fzUsMHLI75nyGt Pulmonary Vein S1 Urgonezu00.2cm/sD2 Doigqfmk76.0cm/s PVa ghlkpuww444taej LEFT VENTRICLE The left ventricle is normal size. There is borderline concentric left ventricular hypertrophy. The l eft ventricular systolic function is normal and the ejection fraction is within normal range. The Eje ction Fraction is 60-65%. There is normal LV segmental wall motion. Transmitral Doppler flow pattern is Grade I-abnormal relaxation pattern. RIGHT VENTRICLE The right ventricle is normal size. There is normal right ventricular wall thickness. The right ventr icular systolic function is normal. ATRIA The left atrium size is normal. The right atrium size is normal. The interatrial septum is intact wit h no evidence for an atrial septal defect or patent foramen ovale as noted on 2-D or Doppler imaging. AORTIC VALVE The aortic valve is thickened but opens well. Doppler and Color Flow revealed no significant aortic r egurgitation. There is no significant aortic valvular stenosis. Calculated aortic valve area is 2.37 cm2 with maximum pressure gradient of 24 mmHg and mean pressure gradient of 12 mmHg. MITRAL VALVE The mitral valve is normal in structure and function. There is no evidence of mitral valve prolapse. There is no mitral valve stenosis. Doppler and Color Flow revealed no mitral valve regurgitation note d. TRICUSPID VALVE The tricuspid valve is normal in structure and function. Doppler and Color Flow revealed trace tricus pid regurgitation with an estimated PAP of 30 mmHg. There is no tricuspid valve stenosis. PULMONIC VALVE The pulmonic valve is not well visualized. Doppler and Color Flow revealed trace pulmonic valvular re gurgitation. GREAT VESSELS The aortic root is normal in size. The IVC is normal in size and collapses >50% with inspiration. PERICARDIAL EFFUSION There is no evidence of significant pericardial effusion. Critical Notification Critical Value: No <Conclusion> The left ventricle is normal size. The left ventricular systolic function is normal and the ejection fraction is within normal range. The Ejection Fraction is 60-65%. There is borderline concentric left ventricular hypertrophy. Doppler and Color Flow revealed no significant aortic regurgitation. There is no significant aortic valvular stenosis. Doppler and Color Flow revealed no mitral valve regurgitation noted. Doppler and Color Flow revealed trace tricuspid regurgitation with an estimated PAP of 30 mmHg. Signed by : Lionel Moctezuma MD Electronically Approved : 01/12/2020 15:00:44
--- NOTE | 2020-01-12 17:09 | RAD ---
MR#: [id number] Date of Study: 01/12/2020 Ordering Physician: JOAQUIN NOLASCO, Referring Physician: NICHOLE GARNETT Tech: RT Ragini (Boy) (N) APPROVED REPORT Test Type: Exercise Stress Nurse/Tech: Maria Elena Santiago R.N. Test Indications: left arm numbness Cardiac History: previous cath, htn Medications: See Electronic Medical Record Medical History: See Electronic Medical Record Resting ECG: SB Resting Heart Rate: 59 bpm Resting Blood Pressure: 135/57mmHg Pretest Chest Pain: No chest pain Nurse/Tech Notes S1S2, lungs CTA Consent: The procedure was explained to the patient in lay terms. Informed consent was witnessed. Cory eout was entered into Scrip-t. History and Stress Test performed by RT Ragini (Boy) (N) Stress Symptoms SOA, knee pain POST EXERCISE Reason for Termination: Reached target heart rate Target HR: Yes Max HR: 140 bpm 95% of Maximum Predicted HR: 148 bpm Exercise duration: 5:19 min:sec, Stage Exercise capacity: 7.0METs Max Blood Pressure: 180/68mmHg Blood Pressure response to exercise: Normal blood pressure response during stress. Heart Rate response to exercise: wnl Chest Pain: No. Arrhythmia: Yes. started having periodic pvcs INTERPRETATION Stress EKG Conclusion: The resting EKG shows a sinus rhythm with minimal nonspecific ST-T wave change s. The stress EKG showed mild ST changes that are not diagnostic of ischemia. No EKG evidence of stress-induced ischemia or significant arrhythmias. Imaging Protocol IMAGE PROTOCOL: Rest Tc-99m/stress Tc-99m 2 days Rest: Stress: Viability: Radiopharm.Tc99m VofaihfyrCz29z Sestamibi Pnfj96sXi 32.3mCi Duration 15min. 15min. Img Date 01/11/2020 01/12/2020 Inj-Img Ytkp40ndt. 60min. Rest Admin Site:IV - Right HandAdministrator:RT Ragini (Boy)(N) Stress Admin Site: IV - Right AntecubitalAdministrator: RT Juan Stephens)(N) STRESS DATA End Diast. Vol.108.0mlAv. Heart Rate58.0bpm End Syst. Vol.23.0mlCO Index BSA0.0L/min Myocardial Yurt849.0gEject. Pjnhlaib52.0% Stress Rates Pk. Fill Rate2.66EDV/secLVtime Pk. Fill 157.07msec Pk. Empty Rate3.22ESV/secLVtime Pk. Jlqjg229.70msec 1/3 Pk. Fill1.53EDV/sec Stress Scores Regional WT0.00Summed WT0.00 Regional WM0.00Summed WM0.00 LV Perfusion The stress images showed no significant defects. The rest images showed no significant defects. Nuclear imaging shows no reversible ischemia or infarct. Wall Motion Left ventricular systolic function appears normal with an ejection fraction of greater than 70%. LV Perf. Quant 17 Seg. SSS3.00 17 Seg. SRS0.00 17 Seg. SDS3.00 Stress Defect Extent (% LAD)0.00Rest Defect Extent (% LAD)0.00Rev. Defect Extent (% LAD)0.00 Stress Defect Extent (% LCX) 18.80Rest Defect Extent (% LCX)0.00Rev. Defect Extent (% LCX)0.00 Stress Defect Extent (% RCA)0.00Rest Defect Extent (% RCA)0.00Rev. Defect Extent (% RCA)0.00 Stress Defect Extent (% ANTWAN)3.30Rest Defect Extent (% ANTWAN)0.00Rev. Defect Extent (% ANTWAN)0.00 Conclusion 1. Reasonable exercise tolerance. 2. No reported chest pain with exertion. 3. No EKG evidence of stress-induced ischemia. 4. Nuclear imaging shows no reversible ischemia or infarct. 5. Normal left ventricular systolic function with an ejection fraction of greater than 70%. 6. Low risk treadmill nuclear stress test. Signed by : Lionel Moctezuma MD Electronically Approved : 01/12/2020 17:09:25
== END | disposition home or self-care (01) ==
LOC: NM 08:24
PROVIDERS: ATTEND Internal Medicine Cardiovascular Disease
DX: I11.9 Hypertensive heart disease without heart failure (principal); Z95.5 Presence of coronary angioplasty implant and graft
CPT/HCPCS: 78452; A9500; 93017; 93306

== ENCOUNTER → 2021-08-07 | Outpatient (CLI) | payer MEDICARE, OTHER ==
[2019-07-27 14:20] VITALS: BP 156/77
[~2021-08-07] MED LIST changes: -LISI-334 PO; +LISI20TA18 PO
--- NOTE | 2021-08-07 17:23 | CARD ---
MR#: [id number] Date of Study: 08/07/2021 Ordering Physician: JOAQUIN NOLASCO, Referring Physician: JOAQUIN NOLASCO, Tech: Anabela Zhang [facility] APPROVED REPORT EXAM: Two-dimensional and M-mode echocardiogram with Doppler and color Doppler. Other Information Quality : AverageHR: 59bpm Rhythm : NSR INDICATION Murmur RISK FACTORS Hypertension Obesity Hyperlipidemia 2D DIMENSIONS RVDd3.2 (2.9-3.5cm)Left Atrium(2D)3.7 (1.6-4.0cm) IVSd1.2 (0.7-1.1cm)Aortic Root(2D)2.9 (2.0-3.7cm) LVDd4.2 (3.9-5.9cm)LVOT Diameter2.4 (1.8-2.4cm) PWd1.2 (0.7-1.1cm)LVDs2.1 (2.5-4.0cm) FS (%) 48.4 %SV61.8 ml LVEF(%)80.2 (>50%) Aortic Valve AoV Peak Kirt.249.1cm/sAoV VTI52.3cm AO Peak GR.24.8mmHgLVOT Peak Kirt.166.5cm/s AO Mean GR.12mmHgAVA (VMAX)3.02cm2 Mitral Valve MV E Ggdrbcip82.4cm/sMV DECEL [id number] MV A Ggrqvyqs136.2cm/sE/A Ratio0.8 Pulmonary Valve PV Peak Fninohyk656.1cm/s Tricuspid Valve TR P. Hoiltniw143ae/sTR Peak Gr.32mmHg LEFT VENTRICLE The left ventricle is normal size. There is mild concentric left ventricular hypertrophy. The left ve ntricular systolic function is normal and the ejection fraction is within normal range. Estimated eje ction fraction 60%. There is normal LV segmental wall motion. Transmitral Doppler flow pattern is Gra de I-abnormal relaxation pattern. RIGHT VENTRICLE The right ventricle is normal size. There is normal right ventricular wall thickness. The right ventr icular systolic function is normal. ATRIA The left atrium size is normal. The right atrium size is normal. The interatrial septum is intact wit h no evidence for an atrial septal defect or patent foramen ovale as noted on 2-D or Doppler imaging. AORTIC VALVE The aortic valve is normal in structure and function. Doppler and Color Flow revealed no significant aortic regurgitation. There is no significant aortic valvular stenosis. There is no aortic valvular v egetation. MITRAL VALVE The mitral valve is normal in structure and function. There is no evidence of mitral valve prolapse. There is no mitral valve stenosis. Doppler and Color-flow revealed mild mitral regurgitation. TRICUSPID VALVE The tricuspid valve is normal in structure and function. Doppler and Color Flow revealed mild tricusp id regurgitation. Estimated PAP 25 mmHg. There is no tricuspid valve stenosis. PULMONIC VALVE Doppler and Color Flow revealed no pulmonic valvular regurgitation. There is no pulmonic valvular jet nosis. GREAT VESSELS The aortic root is normal in size. The ascending aorta is normal in size. The IVC is normal in size a nd collapses >50% with inspiration. PERICARDIAL EFFUSION There is no evidence of significant pericardial effusion. Critical Notification Critical Value: No <Conclusion> The left ventricular systolic function is normal and the ejection fraction is within normal range. E stimated ejection fraction 60%. There is normal LV segmental wall motion. Signed by : Joaquin Nolasco, Electronically Approved : 08/07/2021 17:22:47
== END ==
LOC: ECHO 07:39
PROVIDERS: ATTEND Internal Medicine Cardiovascular Disease
DX: I08.1 Rheumatic disorders of both mitral and tricuspid valves (principal); R01.1 Cardiac murmur, unspecified
CPT/HCPCS: 93306; C8929